=== PATIENT | female | born 1980 | race Caucasian/White ===

== ENCOUNTER 2016-09-04 19:29 | Emergency (ER) | payer OTHER ==
--- NOTE | 2016-09-04 20:10 | ED ---
Lower Extremity Injury HPI - General Chief Complaint: Extremity Injury, Lower Stated Complaint: Hip Pain Time Seen by Provider: 09/04/16 19:45 Source: patient, RN notes reviewed Mode of arrival: ambulatory Limitations: no limitations - History of Present Illness Initial Comments: Patient is a 35-year-old female with chief complaint of right hip pain for the past 2 weeks. Patient reports that she fell 3 weeks ago on her hip and thinks that the pain is related to this fall. She reports that she's been able to ambulate. She states that is mainly over the lateral aspect of the right hip and radiates down towards the front of her knee. Patient denies any peripheral paresthesias. She states that she's had no hip surgeries. She reports that she went to the primary care provider and was placed on steroids and muscle relaxers 3 days ago. Patient reports of this are not helping with her pain. She states that she does not have an orthopedic physician. Patient denies any recent fever, chills, shortness of breath, chest pain, back pain, abdominal pain , nausea vomiting, numbness or tingling, dysuria or hematuria, constipation or diarrhea, headaches or visual changes, or any other current symptoms - Related Data Home Medications Medication Instructions Recorded Confirmed Baclofen [Lioresal] 20 mg PO HS PRN 09/04/16 09/04/16 Ibuprofen [Motrin] 600 mg PO Q6HR PRN 09/04/16 09/04/16 Levonorgestrel-Ethin Estradiol 1 tab PO DAILY 09/04/16 09/04/16 [Levora-28 Tablet] predniSONE 40 mg PO DAILY 09/04/16 09/04/16 Previous Rx's Medication Instructions Recorded traMADol HCl [Ultram] 50 mg PO Q4H PRN #15 tab 09/04/16 Allergies Allergy/AdvReac Type Severity Reaction Status Date / Time No Known Allergies Allergy Verified 09/04/16 19:44 Review of Systems ROS Statement: Those systems with pertinent positive or pertinent negative responses have been documented in the HPI. ROS Other: All systems not noted in ROS Statement are negative. Past Medical History Past Medical History: No Reported History History of Any Multi-Drug Resistant Organisms: None Reported Past Surgical History: Orthopedic Surgery Past Psychological History: No Psychological Hx Reported Smoking Status: Never smoker Past Alcohol Use History: None Reported Past Drug Use History: None Reported General Exam - General Exam Comments Initial Comments: Patient is a 35-year-old female. She does not appear to be in any acute distress. Limitations: no limitations General appearance: alert, in no apparent distress Head exam: Present: atraumatic, normocephalic, normal inspection Eye exam: Present: normal appearance, PERRL, EOMI. Absent: scleral icterus, conjunctival injection, periorbital swelling ENT exam: Present: normal exam, mucous membranes moist Neck exam: Present: normal inspection. Absent: tenderness, meningismus, lymphadenopathy Respiratory exam: Present: normal lung sounds bilaterally. Absent: respiratory distress, wheezes, rales, rhonchi, stridor Cardiovascular Exam: Present: regular rate, normal rhythm, normal heart sounds. Absent: systolic murmur, diastolic murmur, rubs, gallop, clicks GI/Abdominal exam: Present: soft, normal bowel sounds. Absent: distended, tenderness, guarding, rebound, rigid Extremities exam: Present: normal inspection, full ROM, normal capillary refill. Absent: tenderness, pedal edema, joint swelling, calf tenderness Right Hip exam: Present: normal inspection, full ROM, tenderness (She reports tenderness over the quadricep tendon) Upper Leg exam: Present: normal inspection, full ROM Knee exam: Present: normal inspection, full ROM Back exam: Present: normal inspection Neurological exam: Present: alert, oriented X3, CN II-XII intact Psychiatric exam: Present: normal affect, normal mood Skin exam: Present: warm, dry, intact, normal color. Absent: rash Course Vital Signs 09/04/16 09/04/16 19:31 19:47 Temperature 98.9 F 98.5 F Pulse Rate 100 92 Respiratory 18 16 Rate Blood Pressure 144/82 149/94 O2 Sat by Pulse 97 98 Oximetry Medical Decision Making - Medical Decision Making Patient is a 35 year female chief complaint of right hip strain for the past 2 weeks. Patient was recently seen by primary care provider and started on steroids and muscle relaxers. Patient reports the pain continues to persist. Patient given prescription for tramadol for pain. Patient advised follow-up with orthopedic physician. X-ray of the knee shows mild arthritis. The femur and hip show no evidence of any acute abnormalities. Patient will be discharged at this time instructed to follow-up with refill. Return parameters were discussed. - Radiology Data Radiology results: report reviewed X-ray of the right femur shows evidence of osteoarthritis of the right knee. Pelvis and hip x-ray are negative for any acute process. Disposition Clinical Impression: Strain of right hip Disposition: HOME SELF-CARE Condition: Good Instructions: Sciatica (ED) Additional Instructions: Rest, ice, do passive stretches to the hip. Follow-up with orthopedic physician. Take pain medication as prescribed. Finish steroid and muscle relaxers as well. Prescriptions: traMADol HCl [Ultram] 50 mg PO Q4H PRN #15 tab PRN Reason: Pain Referrals: Chela Barrios DO [Primary Care Provider] - 1-2 days Ji Rivera MD [STAFF PHYSICIAN] - 1-2 days Time of Disposition: 20:41
--- NOTE | 2016-09-04 20:15 | XR ---
EXAMINATION TYPE: XR pelvis AP view DATE OF EXAM: 09/04/2016 8:06 PM COMPARISON: NONE HISTORY: Hip pain TECHNIQUE: Single view FINDINGS: Pelvic ring is intact. Proximal femurs and hip joints are intact. Sacroiliac joints are nor mal. IMPRESSION: Negative pelvis exam.
--- NOTE | 2016-09-04 20:19 | XR ---
EXAMINATION TYPE: XR femur RT DATE OF EXAM: 09/04/2016 8:07 PM COMPARISON: NONE HISTORY: Hip pain TECHNIQUE: 4 views FINDINGS: There is mild spurring of the medial femoral and tibial condyles. Hip joint is intact. Ther e is no evidence of a fracture. IMPRESSION: Minimal osteoarthritis in the knee joint. No fracture seen.
[2016-09-04] MEDS ORDERED: traMADol 50 MG STARTER PACK 3 TAB BTL PO STA (20:43)
[2016-09-04 20:53] VITALS: BP 133/79; PULSE 78; RESP 18; TEMP 97
== END 2016-09-04 20:53 | disposition home or self-care (01) ==
LOC: EC 19:29
DX: S76.011A Strain of muscle, fascia and tendon of right hip, initial encounter (principal); W19.XXXA Unspecified fall, initial encounter; Z79.3 Long term (current) use of hormonal contraceptives; M17.11 Unilateral primary osteoarthritis, right knee
CPT/HCPCS: 72170; 99283

== ENCOUNTER → 2020-11-11 | Outpatient (CLI) | payer BC ==
--- NOTE | 2020-11-11 16:25 | MR ---
EXAMINATION TYPE: MR knee RT wo con DATE OF EXAM: 11/11/2020 COMPARISON: Right femur x-ray September 04, 2016 HISTORY: Outer Pain in right knee with locking and swelling for months per patient. TECHNIQUE: Multiplanar, multisequence imaging of the right knee is performed without IV contrast. FINDINGS: MEDIAL MENISCUS: Anterior and posterior horns have increased signal not definitively extending to art icular surface. LATERAL MENISCUS: Anterior and posterior horns are intact without tear. CRUCIATE LIGAMENTS: The anterior and posterior cruciate ligaments are intact and unremarkable. COLLATERAL LIGAMENTS: The medial collateral ligament and lateral collateral ligament complex are inta ct and unremarkable. EXTENSOR MECHANISM: Visualized quadriceps and patellar tendons are intact. EFFUSION: No significant suprapatellar joint effusion. POPLITEAL CYST: No popliteal/guzman cyst. TRICOMPARTMENT SPACES: Mild spurring medial and lateral tibiofemoral compartments. No significant caity nt space loss. CARTILAGE: Tricompartmental articular cartilage fairly well maintained. BONE MARROW SIGNAL: Some heterogeneity consistent with red marrow reconversion. OTHER: Prominent varicose veins in the superficial soft tissue. IMPRESSION: Possible intrasubstance tears involving the anterior and posterior horns medial meniscus. No full-thickness meniscal or ligamentous tear.
== END | disposition home or self-care (01) ==
LOC: RADMRIMAIN 14:27
PROVIDERS: ATTEND Nurse Practitioner
DX: M25.561 Pain in right knee (principal)

== ENCOUNTER 2021-05-01 20:32 | Emergency (ER) | payer BC ==
[2021-05-01] MEDS ORDERED: HYDROmorphone 0.5 MG/0.5 ML SYRINGE IVP STA (21:52)
[2021-05-01] MEDS ORDERED: SODIUM CHLORIDE 0.9% 1,000 ML IV STA (21:52)
[2021-05-01] MEDS ORDERED: ONDANSETRON 4 MG/2 ML VIAL IVP STA (21:52)
--- NOTE | 2021-05-01 21:58 | ED ---
General Adult HPI - General Source: patient Mode of arrival: ambulatory <Aida Power - Last Filed: 05/02/21 00:43> - General Source: RN notes reviewed, old records reviewed Limitations: no limitations <Tony Albrecht - Last Filed: 05/02/21 06:04> - General Chief complaint: Abdominal Pain Stated complaint: Abd Pain Time Seen by Provider: 05/01/21 21:20 - History of Present Illness Initial comments: 32-year-old female presents to the emergency Department with complaints of right upper quadrant abdominal pain, onset 2 days prior to arrival. Patient reports pain is accompanied by nausea, vomiting and diarrhea, and also worsens significa ntly after eating. She states that the pain does radiate into the back. Reports being seen by her primary care provider for these complaints. She has not taken anything to treat her symptoms prior to arrival. Patient denies fever, chills, headache, chest pain, difficulty breathing, leg pain, and urinary symptoms. (Aida Power) - Related Data Home Medications Medication Instructions Recorded Confirmed Baclofen [Lioresal] 20 mg PO HS PRN 09/04/16 09/04/16 Ibuprofen [Motrin] 600 mg PO Q6HR PRN 09/04/16 09/04/16 Levonorgestrel-Ethin Estradiol 1 tab PO DAILY 09/04/16 09/04/16 [Levora-28 Tablet] predniSONE [Deltasone] 40 mg PO DAILY 09/04/16 09/04/16 Previous Rx's Medication Instructions Recorded traMADol HCl [Ultram] 50 mg PO Q4H PRN #15 tab 09/04/16 Allergies Allergy/AdvReac Type Severity Reaction Status Date / Time No Known Allergies Allergy Verified 05/01/21 20:40 Review of Systems ROS Other: All systems not noted in ROS Statement are negative. <Aida Power - Last Filed: 05/02/21 00:43> ROS Other: All systems not noted in ROS Statement are negative. <Tony Albrceht - Last Filed: 05/02/21 06:04> ROS Statement: Those systems with pertinent positive or pertinent negative responses have been documented in the HPI. Past Medical History Past Medical History: No Reported History History of Any Multi-Drug Resistant Organisms: None Reported Past Surgical History: Orthopedic Surgery Past Psychological History: No Psychological Hx Reported Smoking Status: Never smoker Past Alcohol Use History: None Reported Past Drug Use History: None Reported <Aida Power - Last Filed: 05/02/21 00:43> General Exam Limitations: no limitations General appearance: alert, in no apparent distress, other (Well-developed, well- nourished female in no acute distress. Initial temperature 98.2, pulse 82, respirations 18, blood pressure 136/90, pulse ox 98% on room air) ENT exam: Present: normal exam, normal oropharynx, mucous membranes moist Respiratory exam: Present: normal lung sounds bilaterally. Absent: respiratory distress, wheezes, rales, rhonchi, stridor Cardiovascular Exam: Present: regular rate, normal rhythm, normal heart sounds. Absent: systolic murmur, diastolic murmur, rubs, gallop, clicks GI/Abdominal exam: Present: soft, tenderness (Right upper quadrant tenderness upon palpation), normal bowel sounds. Absent: distended, guarding, rebound Back exam: Absent: CVA tenderness (R), CVA tenderness (L) Neurological exam: Present: alert, oriented X3, CN II-XII intact Psychiatric exam: Present: normal affect, normal mood Skin exam: Present: warm, dry, intact, normal color. Absent: rash <Aida Power - Last Filed: 05/02/21 00:43> General appearance: alert, in no apparent distress, obese Head exam: Present: atraumatic, normocephalic, normal inspection Eye exam: Present: normal appearance, PERRL, EOMI. Absent: scleral icterus, conjunctival injection, periorbital swelling ENT exam: Present: normal exam, mucous membranes moist Neck exam: Present: normal inspection. Absent: tenderness, meningismus, lymphadenopathy Respiratory exam: Present: normal lung sounds bilaterally. Absent: respiratory distress, wheezes, rales, rhonchi, stridor Cardiovascular Exam: Present: regular rate, normal rhythm, normal heart sounds. Absent: systolic murmur, diastolic murmur, rubs, gallop, clicks GI/Abdominal exam: Present: soft, normal bowel sounds. Absent: distended, tenderness, guarding, rebound, rigid Extremities exam: Present: normal inspection, full ROM, normal capillary refill. Absent: tenderness, pedal edema, joint swelling, calf tenderness Back exam: Present: normal inspection Neurological exam: Present: alert, oriented X3, CN II-XII intact Psychiatric exam: Present: normal affect, normal mood Skin exam: Present: warm, dry, intact, normal color. Absent: rash <Tony Albrecht - Last Filed: 05/02/21 06:04> Course <Tony Albrecht - Last Filed: 05/02/21 06:04> Vital Signs 05/01/21 05/02/21 20:36 02:40 Temperature 98.2 F 98.3 F Pulse Rate 82 73 Respiratory 19 16 Rate Blood Pressure 136/90 155/84 O2 Sat by Pulse 98 96 Oximetry - Reevaluation(s) Reevaluation #1: 05/02/21 06:03 Medical record is reviewed (Tony Albrecht) Reevaluation #2: 05/02/21 06:03 Patient prefers discharge rather than surgical evaluation (Tony Albrecht) Medical Decision Making - Lab Data Result diagrams: 05/01/21 21:58 05/01/21 21:58 <Aida Power - Last Filed: 05/02/21 00:43> - Lab Data Result diagrams: 05/01/21 21:58 05/01/21 21:58 - Radiology Data Radiology results: report reviewed (Ultrasound is positive for gallstones), image reviewed <Tony Albrecht - Last Filed: 05/02/21 06:04> - Medical Decision Making 40-year-old female was evaluated for complaint of abdominal pain and nausea, vomiting, and diarrhea. Pertinent Physical exam findings include right upper quadrant tenderness upon palpation. Lab findings are significant for elevated bilirubin, AST, and ALT. Urine also appears to be quite concentrated and is positive for blood, ketones, bilirubin, protein. Patient is feeling improved af ter hydration, nausea and pain medicines. This patient's case was discussed with my attending, Dr. Albrecht, who will assume the patient's care at this time. (Aida Power) 40 female to the emergency department for evaluation of right upper quadrant abdominal pain consistent with biliary colic as well as assumed the patient's elevated lab values as well as ultrasound. Patient will return if symptoms become intractable at this time she would prefer outpatient treatment (Tony Albrecht) - Lab Data Lab Results 05/01/21 05/01/21 05/01/21 Range/Units 21:58 21:58 21:58 WBC 9.6 (3.8-10.6) k/uL RBC 4.84 (3.80-5.40) m/uL Hgb 15.0 (11.4-16.0) gm/dL Hct 44.0 (34.0-46.0) % MCV 90.9 (80.0-100.0) fL MCH 31.0 (25.0-35.0) pg MCHC 34.1 (31.0-37.0) g/dL RDW 13.0 (11.5-15.5) % Plt Count 356 (150-450) k/uL MPV 7.0 Neutrophils % 85 % Lymphocytes % 10 % Monocytes % 3 % Eosinophils % 1 % Basophils % 0 % Neutrophils # 8.2 H (1.3-7.7) k/uL Lymphocytes # 0.9 L (1.0-4.8) k/uL Monocytes # 0.3 (0-1.0) k/uL Eosinophils # 0.1 (0-0.7) k/uL Basophils # 0.0 (0-0.2) k/uL Sodium 138 (137-145) mmol/L Potassium 3.6 (3.5-5.1) mmol/L Chloride 109 H (98-107) mmol/L Carbon Dioxide 20 L (22-30) mmol/L Anion Gap 9 mmol/L BUN 12 (7-17) mg/dL Creatinine 0.66 (0.52-1.04) mg/dL Est GFR (CKD-EPI)AfAm >90 (>60 ml/min/1.73 sqM) Est GFR (CKD-EPI)NonAf >90 (>60 ml/min/1.73 sqM) Glucose 134 H (74-99) mg/dL Calcium 7.9 L (8.4-10.2) mg/dL Total Bilirubin 2.1 H (0.2-1.3) mg/dL AST 308 H (14-36) U/L ALT 292 H (4-34) U/L Alkaline Phosphatase 115 (38-126) U/L Total Protein 6.7 (6.3-8.2) g/dL Albumin 3.7 (3.5-5.0) g/dL Lipase 170 (23-300) U/L Urine Color [place] Urine Appearance Turbid H (Clear) Urine pH 6.0 (5.0-8.0) Ur Specific [place] 1.037 H (1.001-1.035) Urine Protein 1+ H (Negative) Urine Glucose (UA) Trace H (Negative) Urine Ketones 2+ H (Negative) Urine Blood Large H (Negative) Urine Nitrite Negative (Negative) Urine Bilirubin 1+ H (Negative) Urine Urobilinogen 4.0 (<2.0) mg/dL Ur Leukocyte Esterase Moderate H (Negative) Urine RBC 32 H (0-5) /hpf Urine WBC 31 H (0-5) /hpf Ur Squamous Epith Cells 26 H (0-4) /hpf Urine Bacteria Few H (None) /hpf Urine Mucus Many H (None) /hpf Urine HCG, Qual (Not Detectd) 05/01/21 Range/Units 21:58 WBC (3.8-10.6) k/uL RBC (3.80-5.40) m/uL Hgb (11.4-16.0) gm/dL Hct (34.0-46.0) % MCV (80.0-100.0) fL MCH (25.0-35.0) pg MCHC (31.0-37.0) g/dL RDW (11.5-15.5) % Plt Count (150-450) k/uL MPV Neutrophils % % Lymphocytes % % Monocytes % % Eosinophils % % Basophils % % Neutrophils # (1.3-7.7) k/uL Lymphocytes # (1.0-4.8) k/uL Monocytes # (0-1.0) k/uL Eosinophils # (0-0.7) k/uL Basophils # (0-0.2) k/uL Sodium (137-145) mmol/L Potassium (3.5-5.1) mmol/L Chloride (98-107) mmol/L Carbon Dioxide (22-30) mmol/L Anion Gap mmol/L BUN (7-17) mg/dL Creatinine (0.52-1.04) mg/dL Est GFR (CKD-EPI)AfAm (>60 ml/min/1.73 sqM) Est GFR (CKD-EPI)NonAf (>60 ml/min/1.73 sqM) Glucose (74-99) mg/dL Calcium (8.4-10.2) mg/dL Total Bilirubin (0.2-1.3) mg/dL AST (14-36) U/L ALT (4-34) U/L Alkaline Phosphatase (38-126) U/L Total Protein (6.3-8.2) g/dL Albumin (3.5-5.0) g/dL Lipase (23-300) U/L Urine Color Urine Appearance (Clear) Urine pH (5.0-8.0) Ur Specific [place] (1.001-1.035) Urine Protein (Negative) Urine Glucose (UA) (Negative) Urine Ketones (Negative) Urine Blood (Negative) Urine Nitrite (Negative) Urine Bilirubin (Negative) Urine Urobilinogen (<2.0) mg/dL Ur Leukocyte Esterase (Negative) Urine RBC (0-5) /hpf Urine WBC (0-5) /hpf Ur Squamous Epith Cells (0-4) /hpf Urine Bacteria (None) /hpf Urine Mucus (None) /hpf Urine HCG, Qual Not Detected (Not Detectd) Disposition <Aida Power - Last Filed: 05/02/21 00:43> Is patient prescribed a controlled substance at d/c from ED?: No <Tony Albrecht - Last Filed: 05/02/21 06:04> Clinical Impression: Abdominal pain, Biliary colic Disposition: HOME SELF-CARE Condition: Good Instructions (If sedation given, give patient instructions): Biliary Colic (ED), Low Fat Diet (ED) Referrals: Chela Barrios DO [Primary Care Provider] - 1-2 days
[2021-05-01 22:17] LABS: Basophils % (A) 0 %; Eosinophils # (A) 0.1 k/uL (0-0.7); Eosinophils % (A) 1 %; Lymphocytes # (A) 0.9 k/uL (1.0-4.8); Lymphocytes % (A) 10 %; MCHC 34.1 g/dL (31.0-37.0); MCV 90.9 fL (80.0-100.0); Monocytes # (A) 0.3 k/uL (0-1.0); Monocytes % (A) 3 %; Neutrophils # (A) 8.2 k/uL (1.3-7.7); Neutrophils % (A) 85 %; Platelet Count 356 k/uL (150-450); RBC 4.84 m/uL (3.80-5.40); WBC 9.6 k/uL (3.8-10.6)
[2021-05-01 22:28] LABS: ALT 292 U/L (4-34); AST 308 U/L (14-36); African American GFR (CKD) >90 (>60 ml/min/1.73 sqM); Albumin 3.7 g/dL (3.5-5.0); Alkaline Phosphatase 115 U/L (38-126); Anion Gap 9 mmol/L; Blood Urea Nitrogen 12 mg/dL (7-17); Calcium 7.9 mg/dL (8.4-10.2); Carbon Dioxide 20 mmol/L (22-30); Chloride 109 mmol/L (98-107); Glucose 134 mg/dL (74-99); Lipase 170 U/L (23-300); Non-African American GFR(CKD) >90 (>60 ml/min/1.73 sqM); Potassium 3.6 mmol/L (3.5-5.1); Sodium 138 mmol/L (137-145); Total Bilirubin 2.1 mg/dL (0.2-1.3); Total Protein 6.7 g/dL (6.3-8.2)
[2021-05-01 23:35] LABS: Appearance,Urine Turbid (Clear); Bacteria,Urine Few /hpf; Bilirubin,Urine 1+ (Negative); Blood,Urine Large (Negative); Color,Urine Orange; Glucose,Urine (UA) Trace (Negative); Ketones,Urine 2+ (Negative); Leukocyte Esterase,Urine Moderate (Negative); Mucus,Urine Many /hpf; Nitrite,Urine Negative (Negative); Protein,Urine 1+ (Negative); RBC,Urine 32 /hpf (0-5); Specific Gravity,Urine 1.037 (1.001-1.035); Squamous Epithelial Cell,Urine 26 /hpf (0-4); WBC,Urine 31 /hpf (0-5)
--- NOTE | 2021-05-02 01:24 | US ---
EXAMINATION TYPE: US abdomen limited DATE OF EXAM: 05/02/2021 COMPARISON: NONE CLINICAL HISTORY: RUQ pain. abd pain for 2 days, N/V EXAM MEASUREMENTS: Liver Length: 18.3 cm Gallbladder Wall: 0.2 cm CBD: 0.9 cm Right Kidney: 10.2 x 3.7 x 4.2 cm Pancreas: wnl Liver: wnl Gallbladder: multiple stones seen with no wall thickening Evidence for sonographic Rivera's sign: no CBD: slightly dilated with no obvious obstruction Right Kidney: wnl IMPRESSION: There are numerous gallstones. Intrahepatic bile ducts are not dilated. No gallbladder wall thickenin g.
[2021-05-02 02:40] VITALS: BP 155/84; PULSE 73; RESP 16; TEMP 98.3
== END 2021-05-02 02:40 | disposition home or self-care (01) ==
LOC: EC 20:32
DX: K80.50 Calculus of bile duct without cholangitis or cholecystitis without obstruction (principal)
CPT/HCPCS: 99284; 96374; 96375; 96361; 36415; 80053; 83690; 85025; 81001; 81025; 87086; 76705; J2405; J1170

== ENCOUNTER → 2023-05-27 | Outpatient (CLI) | payer OTHER ==
--- NOTE | 2023-05-27 15:25 | MM ---
Reason for Exam: Screening (asymptomatic). Last mammogram was performed 8 year(s) and 7 month(s) ago. Patient History: Menarche at age 13. First Full-Term at age 31. Premenopausal. 10/23/2014, Benign Cyst Aspiration on the right side. 10/23/2014, Benign Core Biopsy on the right side. Last menstrual period: 05/20/2023 Risk Values: Inez 5 year model risk: 1.1%. NCI Lifetime model risk: 14.7%. Prior Study Comparison: 10/11/2014 Bilateral Diagnostic Mammogram, [facility]. Tissue Density: There are scattered fibroglandular densities. Findings: Analyzed By CAD. There is no suspicious group of microcalcifications in either breast. Biopsy clip within the right breast. Bilateral calcifications within both breasts. Focal asymmetry identified within the central left breast that middle depth. Overall Assessment: Incomplete: need additional imaging evaluation, BI-RAD 0 Management: Diagnostic Mammogram of the left breast. A clinical breast exam by your physician is recommended on an annual basis and results should be correlated with mammographic findings. [facility] will attempt to contact patient to return for supplemental views and ultrasound if indicated. Note on Inez scores and lifetime risk: 1. A Inez score greater than 3% is considered moderate risk. If this is the case, consider specialist referral to assess eligibility for a risk reducing agent. If overall lifetime risk for the development of breast cancer is 20% or higher, the patient may qualify for future screening with alternating mammogram and breast MRI. Electronically signed and approved by: Valentin Irizarry D.O.
== END | disposition home or self-care (01) ==
LOC: RADMAMWWP 14:20
PROVIDERS: ATTEND Family Medicine
DX: Z12.31 Encounter for screening mammogram for malignant neoplasm of breast (principal)
CPT/HCPCS: 77063; 77067

== ENCOUNTER → 2023-06-08 | Outpatient (CLI) | payer OTHER ==
--- NOTE | 2023-06-08 10:55 | MM ---
Reason for Exam: Follow-up at short interval from prior study. Last screening mammogram was performed less than 1 month ago. Patient History: Menarche at age 13. First Full-Term at age 31. Premenopausal. 10/23/2014, Benign Cyst Aspiration on the right side. 10/23/2014, Benign Core Biopsy on the right side. Last menstrual period: 05/12/2023 Risk Values: Inez 5 year model risk: 1.1%. NCI Lifetime model risk: 14.7%. Prior Study Comparison: 10/11/2014 Bilateral Diagnostic Mammogram, [facility]. 05/27/2023 Bilateral MG 3D screening mammo w/cad, [facility]. Tissue Density: Left: There are scattered fibroglandular densities. Findings: Analyzed By CAD. Small area of centrally located asymmetric density on the CC view does not appear to persist on spot 3-D images. Precautionary six-month follow-up recommended given the appearance on the screening exam. Overall Assessment: Probably benign, BI-RAD 3 Management: Diagnostic Mammogram of the left breast in 6 months. . Results were given to the patient verbally at the time of exam. Patient should continue monthly self-breast exams. A clinical breast exam by your physician is recommended on an annual basis. This exam should not preclude additional follow-up of suspicious palpable abnormalities. Note on Inez scores and lifetime risk: 1. A Inez score greater than 3% is considered moderate risk. If this is the case, consider specialist referral to assess eligibility for a risk reducing agent. 2. If overall lifetime risk for the development of breast cancer is 20% or higher, the patient may qualify for future screening with alternating mammogram and breast MRI. Electronically signed and approved by: Lavern Alvares M.D. Radiologist
== END | disposition home or self-care (01) ==
LOC: RADMAMWWP 10:16
PROVIDERS: ATTEND Family Medicine
DX: R92.322 Mammographic fibroglandular density, left breast (principal)
CPT/HCPCS: 77061; 77065

== ENCOUNTER → 2025-02-10 | Outpatient (CLI) | payer BC ==
--- NOTE | 2025-02-11 08:00 | MR ---
EXAMINATION TYPE: MR lumbar spine wo con DATE OF EXAM: 02/10/2025 7:56 PM COMPARISON: None. CLINICAL INDICATION: Female, 44 years old with history of M54.50; PHH, low back pain that radiates do wn right leg. x6 months history of slip and fall this winter TECHNIQUE: Multi planar, multi sequence imaging was performed utilizing: T1-weighted, T2-weighted, a nd turbo inversion recovery imaging of the lumbar spine. IV Contrast: mL (None, if empty) FINDINGS: Alignment: The lumbar vertebral bodies have preserved heights and alignment. Cord: The conus medullaris and the distal spinal cord appear unremarkable with regards to their signa l intensity and morphology. Bones/Discs: Moderate degeneration changes throughout the spine with osteophyte formation and facet j oint arthropathy. Modic type I endplate changes at L2-L3 adjoining endplates. Intervertebral disc sig nal is maintained. Reactive adjoining endplate edema at L2-L3 T12-L1: No evidence of significant spinal canal stenosis or neural foraminal stenosis. L1-L2: No evidence of significant spinal canal stenosis or neural foraminal stenosis. L2-L3: Eccentric right disc bulge with possible foraminal protrusion resulting in moderate right neur al foraminal stenosis and mild to moderate left neural foraminal stenosis. A couple nerve roots are d isplaced distal sac L3-L4: No evidence of significant spinal canal stenosis. Facet joint arthropathy moderate bilateral n eural foraminal stenosis. L4-L5: Disc bulge with possible central protrusion and facet joint arthropathy result in mild spinal canal and severe right and moderate left bilateral neural foraminal stenosis. Protrusion/bulge close ly approximates multiple nerve roots in the spinal canal.e L5-S1: The disc has a rounded posterior morphology without significant spinal canal stenosis. Facet j oint arthropathy with moderate left and mild right neural foraminal stenosis. No significant spinal canal or neural foraminal stenosis in the remainder of the visualized levels. Other findings: Simple appearing high T2 signal cysts and peripelvic cysts worse on the left measuri ng up to 4.3 x 2.4 cm. Right peripelvic cyst measuring up to 1.2 cm. IMPRESSION: 1. No definitive evidence significant spinal canal stenosis. 2. Moderate disc degeneration with associated osteoarthritic changes. 3. L2-L3 eccentric right disc bulge with possible protrusion displaces some of the nerve roots in th e thecal sac. 4. L4-L5 moderate left and severe right neural foraminal stenosis secondary to facet joint arthropat hy disc bulge 5. L4-5 disc bulge with central protrusion which closely approximates forming nerve roots in the spi nal canal. [facility], , 02/11/2025 7:57 AM
== END | disposition home or self-care (01) ==
LOC: RADMRIMAIN 19:45
PROVIDERS: ATTEND Family Medicine
DX: M51.360 Other intervertebral disc degeneration, lumbar region with discogenic back pain only (principal); M48.061 Spinal stenosis, lumbar region without neurogenic claudication; M47.816 Spondylosis without myelopathy or radiculopathy, lumbar region
CPT/HCPCS: 72148